=== PATIENT | male | born 1960 | race African-American/Black ===

== ENCOUNTER 2016-08-31 13:15 | Emergency (ER) | payer MEDICAID ==
[~2016-08-31] VITALS: Ht 188 cm; Wt 102.1 kg
[~2016-08-31 13:15] MED LIST: ATE50T PO
[2016-08-31 14:28] VITALS: BP 169/89
== END 2016-08-31 15:22 | disposition home or self-care (01) ==
LOC: ER 13:15
DX: S46.912A Strain of unspecified muscle, fascia and tendon at shoulder and upper arm level, left arm, initial encounter (principal); I10 Essential (primary) hypertension; F17.210 Nicotine dependence, cigarettes, uncomplicated; V43.52XA Car driver injured in collision with other type car in traffic accident, initial encounter; Y93.89 Activity, other specified; Y99.8 Other external cause status; Y92.410 Unspecified street and highway as the place of occurrence of the external cause
CPT/HCPCS: 73030

== ENCOUNTER 2017-09-15 07:26 | Emergency (ER) | payer MEDICAID ==
[~2017-09-15] VITALS: Ht 182.9 cm; Wt 80.7 kg
[2017-09-15] MEDS ORDERED: KETOROLAC TROMETH 60MG/2ML VIAL IM ONE (08:00)
[2017-09-15 08:11] VITALS: BP 194/125
== END 2017-09-15 10:23 | disposition home or self-care (01) ==
LOC: ER 07:26 → EDUNIT# 07:26 → ER 10:23
DX: S29.011A Strain of muscle and tendon of front wall of thorax, initial encounter (principal); S76.011A Strain of muscle, fascia and tendon of right hip, initial encounter; S00.83XA Contusion of other part of head, initial encounter; I10 Essential (primary) hypertension; F17.210 Nicotine dependence, cigarettes, uncomplicated; V43.52XA Car driver injured in collision with other type car in traffic accident, initial encounter; Y93.89 Activity, other specified; Y92.410 Unspecified street and highway as the place of occurrence of the external cause; Y99.8 Other external cause status
CPT/HCPCS: 70450; 70486; 71101; 73502; 73700; 96372; 99284; J1885

== ENCOUNTER 2017-09-30 06:40 | Inpatient (IN) | payer MEDICAID ==
[~2017-09-30] VITALS: Ht 188 cm; Wt 97.0 kg
[2017-09-30] MEDS ORDERED: cloNIDine HCL 0.1 MG TAB ONE (06:52)
[2017-09-30] MEDS ORDERED: cloNIDine HCL 0.1 MG TAB PO ONE (07:00)
[2017-09-30 07:24] LABS: Basophils # (auto) 0.1 uL; Eosinophils # (auto) 0.1 uL; Eosinophils % (auto) 1.1 % (0.0-7.0); Hematocrit 44.5 % (41.0-53.0); Hemoglobin 14.6 g/dL (13.5-17.5); Lymphocytes # (auto) 2.1 uL; Lymphocytes % (auto) 26.1 % (10.0-50.0); Mean Corpuscular Hemoglobin 30.1 pg (28.0-32.0); Mean Corpuscular Hgb Conc. 32.9 g/dL (32.0-36.0); Mean Corpuscular Volume 91.4 fL (80.0-100.0); Monocytes # (auto) 0.5 uL; Monocytes % (auto) 6.2 % (0.0-12.0); Neutrophils # (auto) 5.2 uL; Neutrophils % (auto) 65.6 % (37.0-80.0); Platelet Count (auto) 391 10^3/uL (140-450); Red Blood Cells 4.87 10^6/uL (4.5-5.90); Red Cell Distribution Width 12.9 % (11.8-14.3)
[2017-09-30 07:36] LABS: Alanine Aminotransferase 23 U/L (16-61); Albumin 3.6 g/dL (3.4-5.0); Anion Gap 7 (5-15); Aspartate Aminotransferase 14 U/L (15-37); BUN/Creatinine Ratio 11.5; Blood Urea Nitrogen 10 mg/dL (7-18); Calcium 8.8 mg/dL (8.5-10.1); Carbon Dioxide 29 mmol/L (21-32); Chloride 104 mmol/L (98-107); GFR African American 116 mL/min; GFR Non-African American 95 mL/min; Glucose 100 mg/dL (74-106); Magnesium 2.3 mg/dL (1.6-2.6); Potassium 4.2 mmol/L (3.5-5.1); Sodium 140 mmol/L (136-145)
[2017-09-30 07:41] LABS: Alkaline Phosphatase 91 U/L (45-117); Bilirubin, Total 0.5 mg/dL (0.2-1.0); Total Protein 8.3 g/dL (6.4-8.2)
[2017-09-30] MEDS ORDERED: LEVOFLOXACIN 750MG 150 ML IV ONE (08:00)
[2017-09-30 10:22] LABS: Urine Bacteria NONE SEEN /hpf (None Seen); Urine Blood Negative /uL (Negative); Urine Specific Gravity 1.014 (1.001-1.035); Urine WBC <1 /hpf (0 - 3)
[2017-09-30] MEDS ORDERED: LABETALOL HCL 200 MG TAB PO ONE (11:15)
[2017-09-30] MEDS ORDERED: cefTRIAXone 1GM/10ml IVPUSH 10 ML IV ONE (13:15)
[2017-09-30] MEDS ORDERED: NITROGLYCERIN 0.4 MG SL TAB SL PRN (13:30)
[2017-09-30] MEDS ORDERED: NICOTINE 14 MG/24HR TOPICAL PATCH TD ONE (13:30)
[2017-09-30] MEDS ORDERED: MORPHINE SULFATE 4 MG/ML SYR/VIAL IV PRN ×2 (13:30)
[2017-09-30] MEDS ORDERED: DOCUSATE SOD 100 MG CAP PO PRN (13:30)
[2017-09-30] MEDS ORDERED: ONDANSETRON HCL 4 MG/2 ML VIAL IV PRN (13:30)
[2017-09-30] MEDS ORDERED: HYDROcodone-ACET 5/325MG TAB PO PRN (13:30)
[2017-09-30] MEDS ORDERED: METOPROLOL SUCCINATE XL 50 MG TAB PO ONE (13:45)
[2017-09-30] MEDS ORDERED: AZITHROMYCIN 500MG/ 250ML 250 ML IV ONE (13:45)
[2017-09-30 13:54] VITALS: BP 154/87
[2017-09-30] MEDS: SODIUM CHLOR 0.9% PF (SALINE LOCK) 10ML VIAL/SYR IV SCH ×2 (14:04→21:40)
[2017-09-30 17:00] VITALS: BP 156/85
[2017-09-30] MEDS: IPRATROPIUM BROM 0.5 MG/2.5ML INH SOL NEB SCH (19:19)
[2017-09-30] MEDS: ALBUTEROL SULF 2.5 MG/0.5ML(0.5%) NEB SOLN NEB SCH (19:19)
[2017-09-30 22:11] VITALS: BP 151/87
[2017-09-30] MEDS: TEMAZEPAM 15 MG CAP PO PRN (22:13)
[2017-09-30] MEDS: ACETAMINOPHEN 325 MG TAB PO PRN (22:13)
[2017-10-01] MEDS: IPRATROPIUM BROM 0.5 MG/2.5ML INH SOL NEB SCH ×4 (00:50→18:56)
[2017-10-01] MEDS: ALBUTEROL SULF 2.5 MG/0.5ML(0.5%) NEB SOLN NEB SCH ×4 (00:50→18:56)
[2017-10-01 05:49] VITALS: BP 159/93
[2017-10-01] MEDS: SODIUM CHLOR 0.9% PF (SALINE LOCK) 10ML VIAL/SYR IV SCH ×3 (06:16→22:14)
[2017-10-01 07:21] LABS: Albumin 3.2 g/dL (3.4-5.0); BUN/Creatinine Ratio 12.7; Calcium 8.9 mg/dL (8.5-10.1); Potassium 4.2 mmol/L (3.5-5.1)
[2017-10-01 07:24] LABS: Bilirubin, Total 0.4 mg/dL (0.2-1.0); Total Protein 7.2 g/dL (6.4-8.2)
[2017-10-01 07:30] LABS: Basophils # (auto) 0 uL; Basophils % (auto) 0.7 % (0.0-2.0); Eosinophils # (auto) 0.1 uL; Eosinophils % (auto) 1.5 % (0.0-7.0); Hematocrit 42.6 % (41.0-53.0); Hemoglobin 14.2 g/dL (13.5-17.5); Lymphocytes # (auto) 1.9 uL; Lymphocytes % (auto) 27.2 % (10.0-50.0); Mean Corpuscular Hemoglobin 30.5 pg (28.0-32.0); Mean Corpuscular Hgb Conc. 33.3 g/dL (32.0-36.0); Mean Corpuscular Volume 91.6 fL (80.0-100.0); Monocytes # (auto) 0.5 uL; Monocytes % (auto) 7.2 % (0.0-12.0); Neutrophils # (auto) 4.4 uL; Neutrophils % (auto) 63.4 % (37.0-80.0); Nucleated Red Blood Cells % 0.1 %; Platelet Count (auto) 364 10^3/uL (140-450); Red Blood Cells 4.65 10^6/uL (4.5-5.90); Red Cell Distribution Width 12.9 % (11.8-14.3); White Blood Cell 6.9 10^3/uL (4.4-10.8)
[2017-10-01 08:47] VITALS: BP 111/56
[2017-10-01] MEDS: cefTRIAXone 1GM/10ml IVPUSH 10 ML IV SCH (08:52)
[2017-10-01] MEDS: MULTIPLE VITAMIN TAB PO SCH (09:05)
[2017-10-01] MEDS: NICOTINE 14 MG/24HR TOPICAL PATCH TD SCH (09:07)
[2017-10-01] MEDS: AZITHROMYCIN 500MG/ 250ML 250 ML IV SCH (09:09)
[2017-10-01] MEDS: METOPROLOL SUCCINATE XL 50 MG TAB PO SCH (09:20)
[2017-10-01 09:31] VITALS: BP 141/110
[2017-10-01 12:30] VITALS: BP 160/90
[2017-10-01] MEDS: BOOST PLUS 8 ounce PO SCH ×2 (14:19→18:27)
[2017-10-01 16:24] VITALS: BP 148/95
[2017-10-01 22:00] VITALS: BP 147/90
[2017-10-01] MEDS: TEMAZEPAM 15 MG CAP PO PRN (22:51)
[2017-10-02] MEDS: IPRATROPIUM BROM 0.5 MG/2.5ML INH SOL NEB SCH ×4 (00:49→12:40)
[2017-10-02] MEDS: ALBUTEROL SULF 2.5 MG/0.5ML(0.5%) NEB SOLN NEB SCH ×4 (00:49→12:40)
[2017-10-02] MEDS: cloNIDine HCL 0.1 MG TAB PO PRN ×2 (03:57→07:04)
[2017-10-02 04:51] VITALS: BP 178/102
[2017-10-02] MEDS: SODIUM CHLOR 0.9% PF (SALINE LOCK) 10ML VIAL/SYR IV SCH ×2 (06:15→14:22)
[2017-10-02] MEDS: ACETAMINOPHEN 325 MG TAB PO PRN (07:16)
[2017-10-02] MEDS: METOPROLOL SUCCINATE XL 50 MG TAB PO SCH (07:21)
[2017-10-02 07:24] LABS: Basophils # (auto) 0.1 uL; Basophils % (auto) 0.7 % (0.0-2.0); Eosinophils # (auto) 0.2 uL; Eosinophils % (auto) 2.6 % (0.0-7.0); Hematocrit 42.4 % (41.0-53.0); Hemoglobin 14.2 g/dL (13.5-17.5); Lymphocytes # (auto) 1.8 uL; Lymphocytes % (auto) 22.9 % (10.0-50.0); Mean Corpuscular Hemoglobin 30.6 pg (28.0-32.0); Mean Corpuscular Hgb Conc. 33.6 g/dL (32.0-36.0); Monocytes # (auto) 0.4 uL; Monocytes % (auto) 5.6 % (0.0-12.0); Neutrophils # (auto) 5.3 uL; Neutrophils % (auto) 68.2 % (37.0-80.0); Nucleated Red Blood Cells % 0.2 %; Platelet Count (auto) 356 10^3/uL (140-450); Red Blood Cells 4.66 10^6/uL (4.5-5.90); White Blood Cell 7.7 10^3/uL (4.4-10.8)
[2017-10-02 07:47] LABS: BUN/Creatinine Ratio 14.3; Potassium 4.7 mmol/L (3.5-5.1)
[2017-10-02 08:23] VITALS: BP 195/95
[2017-10-02] MEDS: BOOST PLUS 8 ounce PO SCH ×2 (08:27→14:21)
[2017-10-02] MEDS: AZITHROMYCIN 500MG/ 250ML 250 ML IV SCH (10:34)
[2017-10-02] MEDS: MULTIPLE VITAMIN TAB PO SCH (10:34)
[2017-10-02] MEDS: cefTRIAXone 1GM/10ml IVPUSH 10 ML IV SCH (10:35)
[2017-10-02] MEDS: NICOTINE 14 MG/24HR TOPICAL PATCH TD SCH (10:35)
[2017-10-02 14:09] VITALS: BP 142/86
[2017-10-02 14:42] VITALS: BP 142/86
== END 2017-10-02 15:00 | disposition home or self-care (01) | DRG 139 ==
LOC: ER 06:43 → TELE 06:44 → TELE-WESTW 14:52
PROVIDERS: ADMIT Internal Medicine; ATTEND Internal Medicine
DX: J18.9 Pneumonia, unspecified organism (principal); E44.0 Moderate protein-calorie malnutrition; J45.901 Unspecified asthma with (acute) exacerbation; E88.09 Other disorders of plasma-protein metabolism, not elsewhere classified; R09.1 Pleurisy; N52.9 Male erectile dysfunction, unspecified; F17.210 Nicotine dependence, cigarettes, uncomplicated; I10 Essential (primary) hypertension; M54.31 Sciatica, right side; S16.1XXA Strain of muscle, fascia and tendon at neck level, initial encounter; X58.XXXA Exposure to other specified factors, initial encounter; Y93.89 Activity, other specified; Y92.89 Other specified places as the place of occurrence of the external cause; Y99.8 Other external cause status; Z82.5 Family history of asthma and other chronic lower respiratory diseases; Z82.49 Family history of ischemic heart disease and other diseases of the circulatory system; Z91.14 Patient's other noncompliance with medication regimen; Z68.27 Body mass index [BMI] 27.0-27.9, adult
CPT/HCPCS: 36415; 71045; 71250; 72125; 72131; 80048; 80053; 81001; 83735; 83880; 84484; 85025; 87040; 87070; 87205; 93005; 93306; 94640; 96365; 96375; J1956

== ENCOUNTER 2017-10-17 21:36 | Emergency (ER) | payer MEDICAID ==
[~2017-10-17] VITALS: Ht 188 cm; Wt 99.8 kg
[2017-10-17 22:16] VITALS: BP 180/93
[2017-10-18] MEDS ORDERED: cefTRIAXone SOD 1,000 MG VL IM ONE
[2017-10-18] MEDS ORDERED: diphenhdrAMINE HCL 25 MG CAP PO ONE
[2017-10-18] MEDS ORDERED: DEXAMETHASONE SOD PHOS 10MG/1ML VIAL INJ IM ONE (00:15)
== END 2017-10-18 00:29 | disposition home or self-care (01) ==
LOC: ER 21:36
DX: S00.261A Insect bite (nonvenomous) of right eyelid and periocular area, initial encounter (principal); I10 Essential (primary) hypertension; T63.441A Toxic effect of venom of bees, accidental (unintentional), initial encounter; F17.210 Nicotine dependence, cigarettes, uncomplicated; Y93.89 Activity, other specified; Y92.89 Other specified places as the place of occurrence of the external cause; Y99.8 Other external cause status
CPT/HCPCS: 96372; 99283; J1100

== ENCOUNTER 2018-01-30 06:34 | Emergency (ER) | payer MEDICAID ==
[~2018-01-30] VITALS: Ht 188 cm; Wt 99.8 kg
[2018-01-30] MEDS ORDERED: cloNIDine HCL 0.1 MG TAB PO ONE (08:15)
[2018-01-30] MEDS ORDERED: HYDROcodone-ACET 10/325MG TAB PO ONE (08:15)
[2018-01-30 08:53] VITALS: BP 155/84
== END 2018-01-30 08:54 | disposition home or self-care (01) ==
LOC: ER 06:34
DX: I10 Essential (primary) hypertension (principal); M25.552 Pain in left hip; M25.551 Pain in right hip; F17.210 Nicotine dependence, cigarettes, uncomplicated
CPT/HCPCS: 70450; 72110; 73502; 93005

== ENCOUNTER 2018-06-04 07:11 | Emergency (ER) | payer MEDICAID ==
[~2018-06-04] VITALS: Ht 188 cm; Wt 97.1 kg
[2018-06-04 07:20] VITALS: BP 145/68
[2018-06-04] MEDS: KETOROLAC TROMETH 60MG/2ML VIAL IM ONE (08:20)
[2018-06-04] MEDS: METHOCARBAMOL 500 MG TAB PO ONE (08:22)
== END 2018-06-04 08:56 | disposition home or self-care (01) ==
LOC: ER 07:17
DX: S39.012A Strain of muscle, fascia and tendon of lower back, initial encounter (principal); R51 Headache; I10 Essential (primary) hypertension; F17.210 Nicotine dependence, cigarettes, uncomplicated; V43.52XA Car driver injured in collision with other type car in traffic accident, initial encounter; Y93.I9 Activity, other involving external motion; Y92.488 Other paved roadways as the place of occurrence of the external cause; Y99.8 Other external cause status
CPT/HCPCS: 72100; 96372; 99283; J1885

== ENCOUNTER 2022-12-26 16:47 | Inpatient (IN) | payer MEDICAID, OTHER ==
[~2022-12-26] VITALS: Ht 188 cm; Wt 97.0 kg
[2022-12-26] MEDS ORDERED: ATENOLOL 25 MG TAB ONE (17:05)
[2022-12-26] MEDS ORDERED: ATENOLOL 25 MG TAB PO ONE (17:15)
[2022-12-26 17:33] LABS: Basophils # (auto) 0.1 10 ^3/uL (0-0.2); Eosinophils # (auto) 0.1 10 ^3/uL (0-0.8); Hematocrit 40.3 % (41.0-53.0); Hemoglobin 13.4 g/dL (13.5-17.5); Lymphocytes # (auto) 2.3 10 ^3/uL (0.4-5.4); Lymphocytes % (auto) 35.1 % (10.0-50.0); Mean Corpuscular Hgb Conc. 33.3 g/dL (32.0-36.0); Mean Corpuscular Volume 89.9 fL (80.0-100.0); Monocytes # (auto) 0.5 10 ^3/uL (0-1.3); Monocytes % (auto) 7.4 % (0.0-12.0); Neutrophils # (auto) 3.5 10 ^3/uL (1.6-8.6); Neutrophils % (auto) 53.5 % (37.0-80.0); Nucleated Red Blood Cells % 0.4 %; Red Blood Cells 4.48 10^6/uL (4.5-5.90); Red Cell Distribution Width 13.4 % (11.8-14.3); White Blood Cell 6.6 10^3/uL (4.4-10.8)
[2022-12-26 17:41] LABS: INR 1.05 (0.9-1.15); Partial Thromboplastin Time 27.3 SEC (24.5-34.5)
[2022-12-26 17:45] LABS: Albumin 3.6 g/dL (3.4-5.0); Calcium 8.7 mg/dL (8.5-10.1); Magnesium 2.6 mg/dL (1.6-2.6); Potassium 4.5 mmol/L (3.5-5.1)
[2022-12-26 17:49] LABS: BUN/Creatinine Ratio 17.7 (10.0-20.0); Bilirubin, Total 0.5 mg/dL (0.2-1.0); Total Protein 7.3 g/dL (6.4-8.2)
[2022-12-26] MEDS ORDERED: ASPirin-EC 325mg tab PO ONE (19:45)
[2022-12-26 23:25] VITALS: PULSE 72; RESP 16; O2SAT 96
[2022-12-27] MEDS ORDERED: MORPHINE SULFATE INJ 2 MG/ml SYRG IV PRN ×2 (00:15)
[2022-12-27] MEDS ORDERED: ACETAMINOPHEN 325 MG TAB PO PRN ×2 (00:15)
[2022-12-27] MEDS ORDERED: NITROGLYCERIN 0.4 MG SL TAB SL PRN (00:15)
[2022-12-27] MEDS ORDERED: ONDANSETRON HCL 4 MG/2 ML VIAL IV PRN (00:15)
[2022-12-27] MEDS ORDERED: DOCUSATE SOD 100 MG CAP PO PRN (00:15)
[2022-12-27 08:00] VITALS: PULSE 75; RESP 16; TEMP 97.7; O2SAT 97
[2022-12-27] MEDS ORDERED: ENOXAPARIN SOD 40 MG/0.4 ML SYRINGE SC SCH (10:00)
[2022-12-27] MEDS ORDERED: ASPirin 81 mg TAB PO SCH (10:00)
[2022-12-27] MEDS ORDERED: amLODIPine BESYLATE 5 MG TAB PO SCH (10:00)
[2022-12-27 11:07] LABS: Cholesterol 165 mg/dL (< 200); HDL Cholesterol 36 mg/dL (40-59); LDL Cholesterol 116 mg/dL (< 100); Triglycerides 94 mg/dL (< 150)
[2022-12-27] MEDS ORDERED: ADENOSINE 81 MG in GIVE UN-DILUTED 0 ML IV STA (11:19)
[2022-12-27 11:30] VITALS: BP 130/71; PULSE 65; RESP 16
[2022-12-28] MEDS ORDERED: PANTOPRAZOLE 40 MG TAB PO SCH (10:00)
== END 2022-12-27 11:55 | disposition left against medical advice (07) | DRG 199 ==
LOC: EDUNIT# 16:47 → ER 16:47 → EDBD 16:47 → TELE 12-27 00:05
PROVIDERS: ADMIT Internal Medicine; ATTEND Internal Medicine
DX: I16.0 Hypertensive urgency (principal); G93.40 Encephalopathy, unspecified; E78.5 Hyperlipidemia, unspecified; F17.210 Nicotine dependence, cigarettes, uncomplicated; I10 Essential (primary) hypertension; J43.9 Emphysema, unspecified; I25.10 Atherosclerotic heart disease of native coronary artery without angina pectoris; Z82.5 Family history of asthma and other chronic lower respiratory diseases; Z79.899 Other long term (current) drug therapy; Z91.199 Patient's noncompliance with other medical treatment and regimen due to unspecified reason; Z82.49 Family history of ischemic heart disease and other diseases of the circulatory system; Z91.148 Patient's other noncompliance with medication regimen for other reason
CPT/HCPCS: 36415; 70450; 70551; 71045; 80053; 80061; 83036; 83735; 83880; 84484; 85025; 85610; 85730; 93005; 93306; G0378; J0153